=== PATIENT | female | born 1990 | race Two or more races ===

== ENCOUNTER 2022-02-15 20:58 | Inpatient (IN) | payer MEDICAID, SELFPAY ==
[2022-02-15] VITALS (8 sets, daily range): BP systolic 136–159; BP diastolic 71–93
[~2022-02-15] VITALS: Ht 175.3 cm; Wt 100.3 kg
[2022-02-15] MEDS ORDERED: ACET325C5 PO (21:22)
[2022-02-15] MEDS ORDERED: PRENTAB9 PO (21:22)
[2022-02-15] MEDS ORDERED: OXYTOCIN 30 UNITS IN 0.9% NaCl 500ML IV BAG (J2590) As Ordered ONE (21:23)
[2022-02-15] MEDS ORDERED: HOME MED LIST COMPLETE! XX SCH (21:25)
[2022-02-15] MEDS ORDERED: LACTATED RINGER'S 1000 ML IV STA (21:26)
[2022-02-15] MEDS ORDERED: LR 1,000 ML IV SCH (21:30)
[2022-02-15 21:32] LABS: HEMATOCRIT 34.6 % (36.0-47.0); HEMOGLOBIN 11.9 g/dl (12.0-15.5); MEAN CORPUSCULAR HEMOGLOBIN 30.1 pg (27.0-33.0); MEAN CORPUSCULAR HGB CONC 34.4 g/dl (32.0-36.5); MEAN CORPUSCULAR VOLUME 87.6 fl (80.0-96.0); PLATELET COUNT, AUTOMATED 265 10^3/uL (150-450); RED BLOOD COUNT 3.95 10^6/uL (4.00-5.40); WHITE BLOOD COUNT 7.5 10^3/uL (4.0-10.0)
[2022-02-15] MEDS ORDERED: OXYTOCIN DRIP 30 UNITS in IV 1 EA IV SCH (22:20)
[2022-02-15] MEDS ORDERED: ONDANSETRON 4MG 2ML VIAL IV PRN (22:35)
[2022-02-15] MEDS ORDERED: ACETAMINOPHEN 500 MG TAB PO PRN (22:35)
[2022-02-15] MEDS ORDERED: IBUPROFEN 600MG TAB PO PRN (22:35)
[2022-02-15] MEDS ORDERED: METHYLERGONOVINE MALEATE 0.2 MG TAB PO PRN (22:35)
[2022-02-15] MEDS ORDERED: DOCUSATE SODIUM 100MG CAPSULE PO PRN (22:35)
[2022-02-15] MEDS ORDERED: RHOGAM 300 MCG (1500 IU) INJ (J2790) IM SCH (22:35)
[2022-02-15] MEDS ORDERED: DIBUCAINE 1% OINTMENT 30GM TOP PRN (22:35)
[2022-02-15] MEDS ORDERED: ACETAMINOPHEN TAB 650MG DOSE (2X325MG) PO PRN (22:35)
[2022-02-15] MEDS ORDERED: OXYTOCIN DRIP 30 UNITS in IV 1 EA IV ONE (22:35)
[2022-02-15] MEDS: IBUPROFEN 800 MG TAB PO PRN (22:55)
[2022-02-16 00:15] VITALS: BP 115/65
[2022-02-16 00:49] LABS: HIV 1&2 SCREEN CENTAUR NEGATIVE (NEGATIVE)
[2022-02-16 06:00] VITALS: BP 106/63
[2022-02-16] MEDS: PRENATAL VITAMINS CHEWABLE TABLET PO SCH (10:10)
[2022-02-16] MEDS: IBUPROFEN 800 MG TAB PO PRN (15:09)
[2022-02-16 17:52] VITALS: BP 113/73
[2022-02-17] MEDS: IBUPROFEN 800 MG TAB PO PRN ×2 (02:46→16:12)
[2022-02-17 05:00] VITALS: BP 116/74
[2022-02-17] MEDS: PRENATAL VITAMINS CHEWABLE TABLET PO SCH (07:42)
[2022-02-17] MEDS ORDERED: MEASLES,MUMPS,RUBELLA VACCINE INJ (MMR-II) (90707) SC.IMMUN ONE (09:00)
[2022-02-17] MEDS ORDERED: ACET-683 PO (10:33)
[2022-02-17] MEDS ORDERED: IBUP80TA PO (10:33)
[2022-02-17] MEDS ORDERED: medroxyPROGESTERone ACET IM SUSP 150 MG/ML VIAL (J1050) IM ONE (12:00)
== END 2022-02-17 17:20 | disposition home or self-care (01) | DRG 560 ==
LOC: M LDO 20:58 → M LDI 21:21 → M OBS 02-16 00:25
PROVIDERS: ADMIT Specialist; ATTEND Specialist
PROC: 10E0XZZ Delivery of Products of Conception, External Approach (ICD-10-PCS; principal; 2022-02-15)
PROC: 10907ZC Drainage of Amniotic Fluid, Therapeutic from Products of Conception, Via Natural or Artificial Opening (ICD-10-PCS; 2022-02-15)
DX: O80 Encounter for full-term uncomplicated delivery (principal); Z3A.38 38 weeks gestation of pregnancy; Z37.0 Single live birth

== ENCOUNTER → 2023-02-17 | Outpatient (CLI) | payer OTHER ==
[~2023-02-17] MED LIST: ACET-683 PO; ACET325C5 PO; IBUP80TA PO; PRENTAB9 PO
[2023-02-17 15:14] LABS: HIV 1&2 SCREEN NEGATIVE (NEGATIVE)
[2023-02-17 15:22] LABS: HEPATITIS B CORE ANTIBODY IGM NEGATIVE (NEGATIVE); HEPATITIS C VIRUS ABY INDEX 0.14 INDEX (<0.8)
[2023-02-17 15:32] LABS: GC DNA AMPLIFICATION NEGATIVE (NEGATIVE)
[2023-02-17 16:06] LABS: GC DNA AMPLIFICATION NEGATIVE (NEGATIVE)
== END ==
LOC: M PLALAB 11:18
PROVIDERS: ATTEND Nurse Practitioner Family
DX: Z11.3 Encounter for screening for infections with a predominantly sexual mode of transmission (principal)

== ENCOUNTER → 2023-10-28 | Outpatient (REF) | LOC: M LAB 11:23 | PROVIDERS: ATTEND Nurse Practitioner Adult Health | DX: Z02.89 Encounter for other administrative examinations (principal) ==

== ENCOUNTER 2023-12-03 09:24 | Emergency (ER) | payer BC, OTHER ==
[~2023-12-03] VITALS: Ht 170.2 cm; Wt 84.3 kg
[2023-12-03 09:25] VITALS: BP 126/80; TEMP 97.2; O2SAT 98
== END 2023-12-03 15:12 | disposition left against medical advice (07) ==
LOC: M ED 09:24
DX: Z53.21 Procedure and treatment not carried out due to patient leaving prior to being seen by health care provider (principal)

== ENCOUNTER 2023-12-30 15:26 | Emergency (ER) | payer BC, OTHER ==
[~2023-12-30] VITALS: Ht 170.2 cm; Wt 88.3 kg
[2023-12-30 15:27] VITALS: BP 180/90; TEMP 97; O2SAT 100
[2023-12-30] MEDS: AUGMENTIN 875 MG TAB PO ONE (17:14)
[2023-12-30] MEDS: NORCO, ANEXSIA 5/325MG TABLET (HYDROcodone/ACETAMINOPHEN) PO ONE (17:16)
[2023-12-30] MEDS ORDERED: AMOX875T2 PO (17:20)
[2023-12-30] MEDS ORDERED: HYDR-3713 PO (17:20)
== END 2023-12-30 17:32 | disposition home or self-care (01) ==
LOC: M ED 15:26
DX: K04.7 Periapical abscess without sinus (principal); F17.210 Nicotine dependence, cigarettes, uncomplicated; Z79.1 Long term (current) use of non-steroidal anti-inflammatories (NSAID); Z79.2 Long term (current) use of antibiotics

== ENCOUNTER → 2024-02-23 | Outpatient (REF) | payer OTHER ==
[~2024-02-23] MED LIST changes: +AMOX875T2 PO; +HYDR-3713 PO
== END ==
LOC: M SFHCWAGY 10:26
PROVIDERS: ATTEND Nurse Practitioner Family
DX: Z12.4 Encounter for screening for malignant neoplasm of cervix (principal); Z11.51 Encounter for screening for human papillomavirus (HPV)

== ENCOUNTER → 2024-05-02 | Outpatient (REF) | LOC: M EMP 14:54 | PROVIDERS: ATTEND Family Medicine | DX: Z11.52 Encounter for screening for COVID-19 (principal) ==

== ENCOUNTER → 2025-01-10 | Outpatient (REF) | payer BC, OTHER | LOC: M PLALAB 13:46 | PROVIDERS: ATTEND Advanced Practice Midwife | DX: Z34.81 Encounter for supervision of other normal pregnancy, first trimester (principal); Z53.9 Procedure and treatment not carried out, unspecified reason ==

== ENCOUNTER → 2025-01-10 | Outpatient (CLI) | payer BC, OTHER ==
[2025-01-10 15:40] LABS: PLATELET COUNT, AUTOMATED 252 10^3/uL (150-450)
[2025-01-10 16:32] LABS: HIV 1&2 SCREEN NEGATIVE (NEGATIVE)
[2025-01-10 16:40] LABS: HEPATITIS C VIRUS ABY INDEX < 0.02 INDEX (<0.8)
[2025-01-10 16:41] LABS: Trichomonas vaginalis (AMP) POSITIVE (NEGATIVE)
[2025-01-10 17:15] LABS: GC DNA AMPLIFICATION NEGATIVE (NEGATIVE)
== END ==
LOC: M PLALAB 14:02
PROVIDERS: ATTEND Advanced Practice Midwife
DX: Z34.81 Encounter for supervision of other normal pregnancy, first trimester (principal)

== ENCOUNTER → 2025-02-10 | Outpatient (REF) | payer OTHER ==
[2025-02-10 18:41] LABS: Trichomonas vaginalis (AMP) NOT DETECTED (NEGATIVE)
[2025-02-10 19:05] LABS: GC DNA AMPLIFICATION NEGATIVE (NEGATIVE)
== END ==
LOC: M SFHCWAGY 16:49
PROVIDERS: ATTEND Obstetrics & Gynecology
DX: Z34.80 Encounter for supervision of other normal pregnancy, unspecified trimester (principal)

== ENCOUNTER 2025-02-22 08:47 | Emergency (ER) | payer OTHER ==
[~2025-02-22] VITALS: Ht 172.7 cm; Wt 84.4 kg
[2025-02-22 12:59] VITALS: BP 113/68; TEMP 98.4; O2SAT 100
== END 2025-02-22 13:00 | disposition home or self-care (01) ==
LOC: M ED 08:47
DX: O9A.212 Injury, poisoning and certain other consequences of external causes complicating pregnancy, second trimester (principal); R10.30 Lower abdominal pain, unspecified; W22.8XXA Striking against or struck by other objects, initial encounter; Y92.9 Unspecified place or not applicable; Y93.9 Activity, unspecified; Y99.9 Unspecified external cause status; Z3A.15 15 weeks gestation of pregnancy

== ENCOUNTER → 2025-03-24 | Outpatient (CLI) | payer OTHER ==
[2025-03-24 13:00] LABS: ALT/SGPT 14 U/L (7.0-40); AST/SGOT 14 U/L (<34); CALCIUM LEVEL 9.0 MG/DL (8.5-10.1); CARBON DIOXIDE LEVEL 27 MMOL/L (20-31); CHLORIDE LEVEL 106 MMOL/L (98-107); CHOLESTEROL LEVEL 210 MG/DL (<200); CHOLESTEROL RISK RATIO 2.62 (<5); CREATININE FOR GFR 0.44 MG/DL (0.55-1.30); GLOMERULAR FILTRATION RATE > 90.0 (>60); LDL CHOLESTEROL 108.2 MG/DL (<100); NON-HDL-C 130.0 MG/DL; POTASSIUM SERUM 3.5 MMOL/L (3.5-5.1); SODIUM LEVEL 138 MMOL/L (136-145); TRIGLYCERIDES LEVEL 109 MG/DL (<150)
[2025-03-24 13:04] LABS: TOTAL 25(OH) VITAMIN D 6.4 NG/ML (20.0-100.0)
== END ==
LOC: M LAB 11:29
PROVIDERS: ATTEND Student in an Organized Health Care Education/Training Program
DX: E66.9 Obesity, unspecified (principal); E55.9 Vitamin D deficiency, unspecified

== ENCOUNTER → 2025-04-04 | Outpatient (CLI) | payer OTHER | LOC: M WHC 09:22 | PROVIDERS: ATTEND Obstetrics & Gynecology | DX: Z34.80 Encounter for supervision of other normal pregnancy, unspecified trimester (principal); Z3A.20 20 weeks gestation of pregnancy ==

== ENCOUNTER 2025-04-20 12:01 | Outpatient (CLI) | payer OTHER ==
[~2025-04-20] VITALS: Ht 170.2 cm; Wt 90.4 kg
[2025-04-20 12:22] VITALS: BP 108/73
[2025-04-20] MEDS ORDERED: ACET-907 PO (12:26)
[2025-04-20] MEDS ORDERED: CYCLOBENZAPRINE 5 MG TABLET PO PRN (14:15)
[2025-04-20] MEDS ORDERED: CYCL10TA20 PO (14:28)
[2025-04-20] MEDS ORDERED: GABA-1172 PO (14:28)
[2025-04-20] MEDS: GABAPENTIN 300 MG CAP PO ONE (14:49)
[2025-04-20] MEDS: CYCLOBENZAPRINE 10 MG TABLET PO ONE (14:49)
[2025-04-20] MEDS ORDERED: GABAPENTIN 300 MG CAP PO SCH (22:00)
== END 2025-04-20 14:50 | disposition home or self-care (01) ==
LOC: M LDO 12:01
PROVIDERS: ATTEND Obstetrics & Gynecology
DX: O26.892 Other specified pregnancy related conditions, second trimester (principal); M54.41 Lumbago with sciatica, right side; Z3A.23 23 weeks gestation of pregnancy
CPT/HCPCS: 59025; G0463

== ENCOUNTER → 2025-04-25 | Outpatient (CLI) | payer OTHER ==
[~2025-04-25] MED LIST changes: +ACET-907 PO; +CYCL10TA20 PO; +GABA-1172 PO
[2025-04-25 11:54] LABS: PLATELET COUNT, AUTOMATED 301 10^3/uL (150-450)
[2025-04-25 12:07] LABS: GLUCOSE CHALLENGE TEST 1 HOUR 107 MG/DL (LESS THAN 140)
[2025-04-25 12:37] LABS: HIV 1&2 SCREEN NEGATIVE (NEGATIVE)
[2025-04-25 12:44] LABS: Trichomonas vaginalis (AMP) NOT DETECTED (NEGATIVE)
[2025-04-25 12:45] LABS: HEPATITIS C VIRUS ABY INDEX < 0.02 INDEX (<0.8)
[2025-04-25 13:07] LABS: GC DNA AMPLIFICATION NEGATIVE (NEGATIVE)
== END ==
LOC: M LAB 09:26
PROVIDERS: ATTEND Student in an Organized Health Care Education/Training Program
DX: Z34.80 Encounter for supervision of other normal pregnancy, unspecified trimester (principal)

== ENCOUNTER → 2025-05-10 | Outpatient (CLI) | payer OTHER | LOC: M WHC 08:12 | PROVIDERS: ATTEND Student in an Organized Health Care Education/Training Program | DX: Z34.82 Encounter for supervision of other normal pregnancy, second trimester (principal); Z3A.26 26 weeks gestation of pregnancy ==

== ENCOUNTER 2025-06-02 09:24 | Outpatient (CLI) | payer OTHER ==
[~2025-06-02] VITALS: Ht 170.2 cm; Wt 94.4 kg
[2025-06-02] MEDS ORDERED: VITA200016 PO (09:35)
[2025-06-02] MEDS ORDERED: HOME MED LIST COMPLETE! XX SCH (09:35)
[2025-06-02 09:43] VITALS: BP 117/72
[2025-06-02 10:44] VITALS: BP 107/69
[2025-06-02 12:44] LABS: KETONE, URINE AUTO RFX TRACE mg/dL (NEGATIVE); MUCUS, URINE RFX SMALL (NEGATIVE); NITRITE, URINE AUTO RFX NEGATIVE (NEGATIVE); RBC, URINE AUTO RFX 1 /HPF (0-3); SQUAM EPITHELIAL CELL UR AURFX 4 /HPF (0-6); WBC, URINE AUTO RFX 8 /HPF (0-3)
[2025-06-02 12:45] LABS: LEUKOCYTE ESTERASE UR AUTO RFX 1+ (NEGATIVE)
[2025-06-02 13:43] LABS: Trichomonas vaginalis (AMP) NOT DETECTED (NEGATIVE)
[2025-06-02 14:07] LABS: GC DNA AMPLIFICATION NEGATIVE (NEGATIVE)
== END 2025-06-02 14:33 | disposition home or self-care (01) ==
LOC: M LDO 09:24
PROVIDERS: ATTEND Advanced Practice Midwife
DX: O26.893 Other specified pregnancy related conditions, third trimester (principal); R10.84 Generalized abdominal pain; Z3A.29 29 weeks gestation of pregnancy
CPT/HCPCS: 59025; 81001; 87088; 87186; 87661; 87810; 87850; G0463

== ENCOUNTER → 2025-06-08 | Outpatient (CLI) | payer OTHER ==
[~2025-06-08] MED LIST changes: +VITA200016 PO
[2025-06-08 15:15] LABS: PLATELET COUNT, AUTOMATED 261 10^3/uL (150-450)
== END ==
LOC: M PLALAB 11:21
PROVIDERS: ATTEND Nurse Practitioner Family
DX: R42 Dizziness and giddiness (principal)

== ENCOUNTER → 2025-06-28 | Outpatient (REF) | payer OTHER | LOC: M PLALAB 11:06 | PROVIDERS: ATTEND Nurse Practitioner Family | DX: B37.31 Acute candidiasis of vulva and vagina (principal) ==